=== PATIENT | female | born 1990 | race Caucasian/White ===

== ENCOUNTER 2017-06-07 17:34 | Emergency (ER) | payer OTHER ==
[~2017-06-07] VITALS: Ht 160 cm; Wt 60.0 kg
[~2017-06-07 17:34] MED LIST: AMOXICILLIN500 MG PO; BACTRIM DS1 TAB PO; BENTYL20 MG OR; CIPRO500 MG OR; CIPRO500 MG PO; FLEXERIL10 MG OR; IBUPROFEN600 MG PO; IRON325 MG PO; MACRODANTIN100 MG PO; NAPROSYN500 MG PO; ONDANSETRON4 MG OR; PRE-NATAL PO; PRILOSEC20 MG PO; ZPAK PO; [UNRECOGNIZED DRUG - OTHER] PO
[2017-06-07] MEDS ORDERED: PRE-NATAL PO (17:42)
[2017-06-07] MEDS ORDERED: CLINDAMYCIN300 M1 PO (17:57)
[2017-06-07 18:00] VITALS: BP 136/86
== END 2017-06-07 18:00 | disposition home or self-care (01) | DRG 781 ==
LOC: ED 17:34
DX: O26.893 Other specified pregnancy related conditions, third trimester (principal); L03.317 Cellulitis of buttock; Z3A.37 37 weeks gestation of pregnancy

== ENCOUNTER 2017-12-09 16:55 | Emergency (ER) | payer SELFPAY ==
[~2017-12-09] VITALS: Ht 160 cm; Wt 104.5 kg
[~2017-12-09 16:55] MED LIST changes: +CLINDAMYCIN300 M1 PO
[2017-12-09] MEDS ORDERED: BACTRIM DS1 TAB PO (17:45)
[2017-12-09 18:04] VITALS: BP 141/81
== END 2017-12-09 18:09 | disposition home or self-care (01) | DRG 603 ==
LOC: ED 16:55
PROC: 0H9JXZZ Drainage of Left Upper Leg Skin, External Approach (ICD-10-PCS; principal; 2017-12-09)
DX: L02.416 Cutaneous abscess of left lower limb (principal)

== ENCOUNTER 2017-12-12 17:42 | Emergency (ER) | payer SELFPAY ==
[~2017-12-12] VITALS: Ht 160 cm; Wt 105.8 kg
[2017-12-12 18:24] VITALS: BP 131/87
== END 2017-12-12 18:23 | disposition home or self-care (01) | DRG 951 ==
LOC: ED 17:42
DX: Z48.01 Encounter for change or removal of surgical wound dressing (principal)

== ENCOUNTER 2018-09-25 23:42 | Emergency (ER) | payer OTHER ==
[~2018-09-25] VITALS: Ht 160 cm; Wt 59.0 kg
[2018-09-26] MEDS ORDERED: VOLTAREN - GENE75 MG PO (01:01)
[2018-09-26 01:17] VITALS: BP 122/82
== END 2018-09-26 01:18 | disposition home or self-care (01) ==
LOC: ED 23:42
DX: S83.92XA Sprain of unspecified site of left knee, initial encounter (principal); S86.912A Strain of unspecified muscle(s) and tendon(s) at lower leg level, left leg, initial encounter; W18.30XA Fall on same level, unspecified, initial encounter; Y93.89 Activity, other specified; Y92.830 Public park as the place of occurrence of the external cause

== ENCOUNTER 2020-03-29 01:51 | Emergency (ER) | payer SELFPAY ==
[~2020-03-29] VITALS: Ht 160 cm; Wt 106.0 kg
[~2020-03-29 01:51] MED LIST changes: +VOLTAREN - GENE75 MG PO
[2020-03-29 02:48] LABS: HEMOGLOBIN 12.7 g/dl (12.0-16.0); IMMATURE GRANULOCYTES 0.1 % (0.0-5.0); MEAN CELL VOLUME 91.1 fL CALC (80.0-100.0); MEAN CORPUSCULAR HGB 29.7 pG CALC (26.0-32.0); MEAN CORPUSCULAR HGB CONC 32.6 g/dL CAL (32.0-36.0); NEUT# 3.65 thou/uL (2.00-7.15); RED BLOOD COUNT 4.28 mill/uL (4.20-5.60); RED CELL DISTRI WIDTH 12.3 % (11.5-15.5)
[2020-03-29 02:51] LABS: URINE BILIRUBIN - DIPSTICK NEGATIVE (NEGATIVE); URINE BLOOD DIPSTICK NEGATIVE (NEGATIVE); URINE COLOR YELLOW; URINE GLUCOSE - DIPSTICK NEGATIVE (NEGATIVE); URINE KETONE NEGATIVE (NEGATIVE); URINE LEUK ESTERASE NEGATIVE (NEGATIVE); URINE NITRITE - DIPSTICK NEGATIVE (Negative); URINE PH 6.5 (4.5-8.0); URINE PROTEIN - DIPSTICK NEGATIVE (NEG-TRACE); URINE SPECIFIC GRAVITY <=1.005; URINE UROBILINOGEN - DIPSTICK 0.2 E.U./dL (0.2)
[2020-03-29 03:04] LABS: ALBUMIN 4.2 g/dL (3.2-5.0); ALKALINE PHOSPHATASE 47 u/l (38-126); AMYLASE 90 u/l (30-110); ANION GAP 13 (6-22 (CALC)); BUN 8 mg/dL (7-17); BUN/CREATININE RATIO 20 (12-20 (CALC)); CARBON DIOXIDE 23 mmol/l (22-30); CHLORIDE 107 mmol/l (95-108); CREATININE 0.4 mg/dL (0.5-1.0); GFR > 60 ML/MIN (>=60 (CALC)); GFR FOR AFR.AMER. > 60 ML/MIN (>=60 (CALC)); LIPASE 151 u/l (23-300); POTASSIUM 4.4 mmol/l (3.5-5.1); SGOT/AST 35 u/l (14-36); SODIUM 139 mmol/l (137-146); TOTAL PROTEIN 7.6 g/dL (6.3-8.2)
[2020-03-29 03:07] LABS: BILIRUBIN, TOTAL 0.6 mg/dL (0.0-1.4)
[2020-03-29 04:20] VITALS: BP 136/70
[2020-03-29] MEDS ORDERED: ONDANSETRON4 MG PO (04:39)
[2020-03-29] MEDS ORDERED: ULTRAM50 M1 PO (04:39)
== END 2020-03-29 04:57 | disposition home or self-care (01) | DRG 761 ==
LOC: ED 01:51
PROVIDERS: Emergency Medicine
DX: N83.201 Unspecified ovarian cyst, right side (principal)
CPT/HCPCS: Q9967

== ENCOUNTER 2021-11-25 16:48 | Emergency (ER) | payer SELFPAY ==
[~2021-11-25] VITALS: Ht 160 cm; Wt 106.0 kg
[~2021-11-25 16:48] MED LIST changes: +ONDANSETRON4 MG PO; +ULTRAM50 M1 PO
[2021-11-25] MEDS ORDERED: ZPAK PO (19:18)
[2021-11-25] MEDS ORDERED: ROBITUSSIN AC10 ML PO (19:18)
[2021-11-25] MEDS ORDERED: NAPROXEN500 MG PO (19:18)
[2021-11-25 19:25] VITALS: BP 130/91
== END 2021-11-25 19:30 | disposition home or self-care (01) | DRG 195 ==
LOC: ED 16:48
DX: J18.9 Pneumonia, unspecified organism (principal); Z20.822 Contact with and (suspected) exposure to COVID-19

== ENCOUNTER 2021-11-27 00:49 | Emergency (ER) | payer SELFPAY ==
[~2021-11-27] VITALS: Ht 160 cm; Wt 63.6 kg
[~2021-11-27 00:49] MED LIST changes: +NAPROXEN500 MG PO; +ROBITUSSIN AC10 ML PO
[2021-11-27 00:56] VITALS: BP 146/99
[2021-11-27 01:14] VITALS: BP 136/91
[2021-11-27 01:20] LABS: HEMATOCRIT 39.6 % (37.0-47.0); HEMOGLOBIN 12.8 g/dl (12.0-16.0); IMMATURE GRANULOCYTES 0.2 % (0.0-5.0); MEAN CELL VOLUME 92.5 fL CALC (80.0-100.0); MEAN CORPUSCULAR HGB 29.9 pG CALC (26.0-32.0); MEAN CORPUSCULAR HGB CONC 32.3 g/dL CAL (32.0-36.0); NEUT# 1.77 thou/uL (2.00-7.15); RED BLOOD COUNT 4.28 mill/uL (4.20-5.60)
[2021-11-27 01:31] VITALS: BP 115/84
[2021-11-27 01:35] LABS: ACT PARTIAL THROMBO TIME 20.6 SECONDS (20.0-32.5); INTERNATIONAL NORMALIZED RATIO 0.9 RATIO (0.7-1.3); PROTHROMBIN TIME 9.9 SECONDS (9.0-12.5)
[2021-11-27 01:42] LABS: D-DIMER 0.48 mg/L (0.19-0.60)
[2021-11-27 01:46] VITALS: BP 108/70
[2021-11-27 01:47] LABS: ALBUMIN 4.1 g/dL (3.2-5.0)
[2021-11-27 01:50] LABS: ALKALINE PHOSPHATASE 54 u/l (38-126); ANION GAP 13 (6-22 (CALC)); BUN 12 mg/dL (7-17); BUN/CREATININE RATIO 21 (12-20 (CALC)); CARBON DIOXIDE 26 mmol/l (22-30); CHLORIDE 106 mmol/l (95-108); CREATININE 0.5 mg/dL (0.5-1.0); GFR FOR AFR.AMER. > 60 ML/MIN (>=60 (CALC)); GFR OTHER RACES > 60 ML/MIN (>=60 (CALC)); SGOT/AST 29 u/l (14-36); SODIUM 141 mmol/l (137-146); TOTAL PROTEIN 7.1 g/dL (6.3-8.2)
[2021-11-27 01:51] LABS: BILIRUBIN, TOTAL 0.3 mg/dL (0.0-1.4)
[2021-11-27 02:00] VITALS: BP 120/70
[2021-11-27 02:00] LABS: MYOGLOBIN 18 ng/mL (0 - 62)
[2021-11-27] MEDS ORDERED: VIBRAMYCIN100 M2 PO (02:12)
[2021-11-27 02:15] VITALS: BP 120/70
== END 2021-11-27 02:20 | disposition home or self-care (01) | DRG 204 ==
LOC: ED 00:49
PROVIDERS: Family Medicine
DX: R06.02 Shortness of breath (principal); T36.95XA Adverse effect of unspecified systemic antibiotic, initial encounter; J18.9 Pneumonia, unspecified organism; Z20.822 Contact with and (suspected) exposure to COVID-19

== ENCOUNTER 2022-03-15 11:28 | Emergency (ER) | payer SELFPAY ==
[~2022-03-15] VITALS: Ht 160 cm; Wt 104.5 kg
[~2022-03-15 11:28] MED LIST changes: +VIBRAMYCIN100 M2 PO
[2022-03-15 11:41] VITALS: BP 142/101
[2022-03-15] MEDS ORDERED: AMOXICILLIN500 MG PO (11:53)
[2022-03-15 12:00] VITALS: BP 128/85
[2022-03-15 12:16] VITALS: BP 128/85
== END 2022-03-15 12:16 | disposition home or self-care (01) | DRG 153 ==
LOC: ED 11:28
DX: J03.90 Acute tonsillitis, unspecified (principal)

== ENCOUNTER 2023-01-08 19:00 | Emergency (ER) | payer SELFPAY ==
[~2023-01-08] VITALS: Ht 160 cm; Wt 86.0 kg
[2023-01-08 19:36] VITALS: BP 108/66
[2023-01-08 20:00] VITALS: BP 105/60
[2023-01-08 20:31] LABS: EOS% 0.5 % (0-8); HEMATOCRIT 38.7 % (37.0-47.0); HEMOGLOBIN 12.8 g/dl (12.0-16.0); IMMATURE GRANULOCYTES 0.5 % (0.0-5.0); LYMPH% 27.7 % (15-41); MEAN CELL VOLUME 90.2 fL CALC (80.0-100.0); MEAN CORPUSCULAR HGB 29.8 pG CALC (26.0-32.0); MEAN CORPUSCULAR HGB CONC 33.1 g/dL CAL (32.0-36.0); MONO% 6.8 % (2-13); NEUT# 1.21 thou/uL (2.00-7.15); NEUT% 63.5 % (42-76); RED BLOOD COUNT 4.29 mill/uL (4.20-5.60); RED CELL DISTRI WIDTH 12.4 % (11.5-15.5)
[2023-01-08 21:38] VITALS: BP 105/60
== END 2023-01-08 22:14 | disposition home or self-care (01) | DRG 866 ==
LOC: ED 19:00
PROVIDERS: Family Medicine
DX: B34.9 Viral infection, unspecified (principal); Z20.822 Contact with and (suspected) exposure to COVID-19

== ENCOUNTER 2024-05-12 16:05 | Emergency (ER) | payer SELFPAY | END 2024-05-12 17:00 | disposition left against medical advice (07) | DRG 951 | LOC: ED 16:05 → LWOBS 16:26 | DX: Z53.21 Procedure and treatment not carried out due to patient leaving prior to being seen by health care provider (principal) ==